=== PATIENT | female | born 1955 | race Hispanic/Latino ===

== ENCOUNTER 2025-06-21 13:32 | Outpatient (CLI) | payer BC ==
[2025-06-21 14:41] LABS: #Basophils 0.03 10x3/uL (0.0-0.2); #Eosinophils 0.15 10x3/uL (0.0-0.5); #Monocytes 0.53 10x3/uL (0.0-1.1); #Neutrophils 4.47 10x3/uL (1.5-8.4); %Basophils 0.4 % (0.0-2.0); %Eosinophils 2.2 % (0.0-6.0); %Lymphocytes 24.2 % (18.0-47.0); %Monocytes 7.7 % (0.0-10.0); %Neutrophils 65.2 % (40.0-75.0); Hematocrit 40.2 % (34.9-44.5); Hemoglobin 13.0 g/dL (12.0-15.5); Mean Corpuscular Hemoglobin 29.5 pg (27.0-33.0); Mean Corpuscular Volume 91.2 fL (81.6-98.3); Platelet Count 185 10x3/uL (150-450); Red Blood Cell (RBC) Count 4.41 10x6/uL (3.90-5.03); White Blood Cell (WBC) Count 6.86 10x3/uL (3.5-10.5)
[2025-06-21 15:22] LABS: Anion Gap 13 mmol/L (10-20); BUN (Urea Nitrogen) 19 mg/dL (9.8-20.1); Calc. Creatinine Clearance 0 mL/min (70-130); Calcium 9.5 mg/dL (7.8-10.44); Carbon Dioxide 26 mmol/L (23-31); Chloride 106 mmol/L (98-107); Glucose 95 mg/dL (80-115); Potassium 4.1 mmol/L (3.5-5.1); Sodium 141 mmol/L (136-145)
== END 2025-06-21 13:33 | disposition home or self-care (01) ==
LOC: CSHLAB 13:32
PROVIDERS: ATTEND Specialist
DX: Z01.818 Encounter for other preprocedural examination (principal); D49.3 Neoplasm of unspecified behavior of breast
CPT/HCPCS: 71046; 80048; 85025; 93005; 93010

== ENCOUNTER 2025-06-23 05:58 | Day surgery (SDC) | payer BC ==
[2025-06-21 14:10] VITALS: BMI 45.2
[2025-06-23] MEDS ORDERED: Ketorolac Tromethamine 30 MG (1 mL) VIAL ONE (06:33)
[2025-06-23] MEDS ORDERED: PROPOFOL 20 ML ONE (07:12)
[2025-06-23] MEDS ORDERED: Bupivacaine/Epinephrine 0.25% 30 ML VIAL ONE (07:16)
[2025-06-23] MEDS ORDERED: CEFAZOLIN 2 GM VIAL ONE (07:16)
[2025-06-23] MEDS ORDERED: HYDROcodone/Acetaminophen 5/325 mg Tablet ONE (09:45)
== END 2025-06-23 10:35 | disposition home or self-care (01) ==
LOC: CSHSDC 05:58
PROVIDERS: ATTEND Specialist
PROC: 0HBU0ZZ Excision of Left Breast, Open Approach (ICD-10-PCS; principal; 2025-06-23)
DX: D24.2 Benign neoplasm of left breast (principal); I10 Essential (primary) hypertension; E78.5 Hyperlipidemia, unspecified; G47.33 Obstructive sleep apnea (adult) (pediatric); Z96.641 Presence of right artificial hip joint; Z90.49 Acquired absence of other specified parts of digestive tract; Z90.710 Acquired absence of both cervix and uterus; Z79.899 Other long term (current) drug therapy
CPT/HCPCS: 76098; 88307; J1100; J1885; J2704